=== PATIENT | male | born 1975 | race Caucasian/White ===

== ENCOUNTER 2018-03-12 21:40 | Emergency (ER) | payer BC, SELFPAY ==
[2018-03-12 22:34] LABS: Absolute Lymphocytes (CBC) 2.9 K/uL (0.7-4.9); Absolute Monocytes 0.6 K/uL (0.1-1.3); Absolute Neutrophil 5.9 K/uL (1.8-8.0); Basophils % 0.6 % (0-1.3); Hematocrit 43.6 % (39.6-49.0); Lymphocytes % 29.3 % (15.3-44.8); MCH 27.7 pg (27.0-35.0); MCV 82.7 fL (80-100); MPV 8.8 fL (7.6-11.3); Monocytes % 5.7 % (3.3-12.3); RBC Red Blood Cell Count 5.27 M/uL (4.33-5.43)
[2018-03-12 22:47] LABS: Potassium 3.7 mEq/L (3.6-5.0)
[2018-03-12 22:53] LABS: Albumin 4.1 g/dL (3.2-5.5); Bilirubin Direct 0.1 mg/dL (0-0.2); Bilirubin Total 0.6 mg/dL (0.3-1.2); Magnesium 2.1 mg/dL (1.8-2.5); Protein, Total 7.3 g/dL (6.0-8.3)
[2018-03-12 22:55] LABS: CKMB Creatine Kinase MB 9.5 ng/ml (0.3-4.0); Protime INR 1.13
--- NOTE | 2018-03-13 00:27 | EDPHYS ---
Physician Documentation [facility] Name: Onofre Aponte Age: 43 yrs Sex: Male : 1975 Arrival Date: 03/12/2018 Time: 21:50 Bed 18 Private MD: ED Physician Jamar Ch HPI: 03/13 00:20 This 43 yrs old Male presents to ER via EMS with complaints of Numbness Of tw4 Arm. 00:20 The patient's problem is reported as paresthesias, in left upper extremity, in left tw4 side of face. Onset: The symptoms/episode began/occurred today. Duration: This was a single incident. Context: the episode(s) was witnessed, by no one. The symptoms are alleviated by nothing. The symptoms are aggravated by nothing. Associated signs and symptoms: The patient has no apparent associated signs or symptoms. Severity of symptoms: At their worst the symptoms were moderate in the emergency department the symptoms are unchanged. The patient has not experienced similar symptoms in the past. Historical: - Allergies: 03/12 22:04 NKDA; bs1 - Home Meds: 22:04 simvastatin 20 mg Oral tab 1 tab once daily [Active]; Xarelto 20 mg oral tab [Active]; bs1 metformin 1,000 mg Oral tab 1 tab 2 times per day [Active]; - PMHx: 22:04 PE; High Cholesterol; Diabetes - NIDDM; bs1 - PSHx: 22:04 foot sx; bs1 - Immunization history:: Adult Immunizations up to date. - Social history:: Smoking status: Patient/guardian denies using tobacco. - Ebola Screening: : Patient negative for fever greater than or equal to 101.5 degrees Fahrenheit, and additional compatible Ebola Virus Disease symptoms Patient denies exposure to infectious person. ROS: 03/13 00:20 Constitutional: Negative for fever, chills, and weight loss, Cardiovascular: Negative tw4 for chest pain, palpitations, and edema, Respiratory: Negative for shortness of breath, cough, wheezing, and pleuritic chest pain, Abdomen/GI: Negative for abdominal pain, nausea, vomiting, diarrhea, and constipation. Neuro: Positive for numbness, weakness, Negative for altered mental status, dizziness, gait disturbance, headache, hearing loss, loss of consciousness, speech changes, syncope, near syncope. Exam: 00:20 Radiologist reports: no acute findings tw4 00:20 Constitutional: This is a well developed, well nourished patient who is awake, alert, and in no acute distress. Head/Face: Normocephalic, atraumatic. Chest/axilla: Normal chest wall appearance and motion. Nontender with no deformity. No lesions are appreciated. Cardiovascular: Regular rate and rhythm with a normal S1 and S2. No gallops, murmurs, or rubs. Normal PMI, no JVD. No pulse deficits. Respiratory: Lungs have equal breath sounds bilaterally, clear to auscultation and percussion. No rales, rhonchi or wheezes noted. No increased work of breathing, no retractions or nasal flaring. Abdomen/GI: Soft, non-tender, with normal bowel sounds. No distension or tympany. No guarding or rebound. No evidence of tenderness throughout. Back: No spinal tenderness. No costovertebral tenderness. Full range of motion. MS/ Extremity: Pulses equal, no cyanosis. Neurovascular intact. Full, normal range of motion. Neuro: Awake and alert, GCS 15, oriented to person, place, time, and situation. Cranial nerves II-XII grossly intact. Motor strength 5/5 in all extremities. Sensory grossly intact. Cerebellar exam normal. Normal gait. Vital Signs: 03/12 21:50 BP 144 / 77 LA Sitting (auto/lg); Pulse 85 LA; Resp 19; Pulse Ox 95% on R/A; Weight bs1 156.49 kg; Height 6 ft. 1 in. (185.42 cm); Pain 0/10; 23:00 BP 135 / 78; Pulse 82; Resp 18; Pulse Ox 95% on R/A; mb3 03/13 01:03 BP 135 / 69; Pulse 78; Resp 18; Pulse Ox 96% on R/A; mb3 03/12 21:50 Body Mass Index 45.52 (156.49 kg, 185.42 cm) bs1 MDM: 03/12 22:08 Patient medically screened. tw4 03/13 00:20 Data reviewed: vital signs, nurses notes. Counseling: I had a detailed discussion with tw4 the patient and/or guardian regarding: the historical points, exam findings, and any diagnostic results supporting the discharge/admit diagnosis. 03/12 22:09 Order name: DEONTE 03/12 22:09 Order name: Ckmb 03/12 22:09 Order name: UDS 03/12 22:09 Order name: Troponin (emerg Dept Use Only); Complete Time: 23:22 4 03/12 23:23 Interpretation: Within normal limits: TROPED < 0.03. 03/12 22:09 Order name: Lipase 03/12 22:09 Order name: Magnesium 03/12 22:09 Order name: Hepatic Function 03/12 22:09 Order name: Amylase, Serum; Complete Time: 23:22 4 03/12 23:23 Interpretation: Normal except: CRAIG 25. 03/12 22:09 Order name: Basic Metabolic Panel; Complete Time: 23:22 03/12 23:23 Interpretation: Normal except: GLUC 173; GFR 86. 03/12 22:09 Order name: CBC with Diff; Complete Time: 23:22 [facility] 03/12 22:09 Order name: Protime (+inr); Complete Time: 23:22 03/12 22:09 Order name: Ptt, Activated; Complete Time: 23:22 03/12 22:09 Order name: Urine Microscopic Only 03/12 22:10 Order name: Creatine Phosphokinase; Complete Time: 23:22 EDMS 03/12 22:09 Order name: CT Stroke Brain w/o Contrast 03/12 22:09 Order name: Stroke CXR 1 View 03/12 22:09 Order name: EKG; Complete Time: 22:10 [facility] 03/12 22:09 Order name: Accucheck 03/12 22:09 Order name: Cardiac monitoring; Complete Time: 22:14 03/12 22:09 Order name: EKG - Nurse/Tech; Complete Time: 22:14 03/12 22:09 Order name: IV Saline Lock 03/12 22:09 Order name: Labs collected and sent 03/12 22:09 Order name: NPO 03/12 22:09 Order name: O2 Per Protocol 03/12 22:09 Order name: O2 Sat Monitoring 03/12 22:10 Order name: CKMB Creatine Kinase MB; Complete Time: 23:22 EDMS 03/12 22:10 Order name: Lipase; Complete Time: 23:22 EDME 03/12 23:23 Interpretation: Within normal limits: LIP 31. tw4 03/12 22:10 Order name: Magnesium; Complete Time: 23:22 EDMS 03/12 23:23 Interpretation: Within normal limits: MG 2.1. tw4 03/12 22:10 Order name: Liver (Hepatic) Function; Complete Time: 23:22 EDME 06 23:23 Interpretation: Within normal limits. tw4 03/13 00:34 Order name: Urine Dipstick--Ancillary (enter results) fl 03/12 22:09 Order name: Stroke Swallow Screen tw4 03/12 22:09 Order name: Urine Dipstick-Ancillary (obtain specimen); Complete Time: 00:34 tw4 Administered Medications: No medications were administered Disposition: 03/13/18 00:26 Transfer ordered to [facility]. Diagnosis is Transient cerebral ischemic attack, unspecified. - Reason for transfer: Higher level of care. - Accepting physician is Dr Chan and Dr Acosta. - Condition is Stable. - Problem is new. - Symptoms have improved. Signatures: Dispatcher [employer] EDME Caitlyn Gonzalez RN RN bs1 Jamar Ch MD MD tw4 Hero Odom RN RN mb3 Corrections: (The following items were deleted from the chart) 01:24 00:26 03/13/2018 00:26 Transfer ordered to [facility]. Diagnosis is mb3 Transient cerebral ischemic attack, unspecified. Reason for transfer: Higher level of care. Accepting physician is Dr Chan and Dr Acosta. Condition is Stable. Problem is new. Symptoms have improved. tw4
--- NOTE | 2018-03-13 00:27 | ER ---
Nurse's Notes [facility] Name: Onofre Aponet Age: 43 yrs Sex: Male : 1975 Arrival Date: 03/12/2018 Time: 21:50 Bed 18 Private MD: Diagnosis: Transient cerebral ischemic attack, unspecified Presentation: 03/12 21:50 Presenting complaint: EMS states: "About an hour ago patients daughter called EMS with bs1 c/o numbness in face and some slurred speech, on arrival no deficits noted, blood pressure 130/77, heart rate 88, 97% on room air, patient denies any pain.". Transition of care: patient was not received from another setting of care. Onset of symptoms was March 12, 2018 at 21:07. Risk Assessment: Do you want to hurt yourself or someone else? Patient reports no desire to harm self or others. Initial Sepsis Screen: Does the patient meet any 2 criteria? No. Patient's initial sepsis screen is negative. Does the patient have a suspected source of infection? No. Patient's initial sepsis screen is negative. Care prior to arrival: Glucose check: 111. 21:50 Method Of Arrival: EMS: [facility] bs1 21:50 Acuity: BILLY 3 bs1 Historical: - Allergies: 22:04 NKDA; bs1 - Home Meds: 22:04 simvastatin 20 mg Oral tab 1 tab once daily [Active]; Xarelto 20 mg oral tab [Active]; bs1 metformin 1,000 mg Oral tab 1 tab 2 times per day [Active]; - PMHx: 22:04 PE; High Cholesterol; Diabetes - NIDDM; bs1 - PSHx: 22:04 foot sx; bs1 - Immunization history:: Adult Immunizations up to date. - Social history:: Smoking status: Patient/guardian denies using tobacco. - Ebola Screening: : Patient negative for fever greater than or equal to 101.5 degrees Fahrenheit, and additional compatible Ebola Virus Disease symptoms Patient denies exposure to infectious person. Screenin:04 Abuse screen: Denies threats or abuse. Denies injuries from another. Nutritional bs1 screening: No deficits noted. Tuberculosis screening: No symptoms or risk factors identified. Fall Risk None identified. Assessment: 03/13 01:03 General: Appears in no apparent distress. comfortable, obese, Behavior is calm, mb3 cooperative, appropriate for age. Pain: Denies pain. Neuro: No deficits noted. Level of Consciousness is awake, alert, obeys commands, Oriented to person, place, time, situation, Data Integration Developer are equal bilaterally Moves all extremities. Full function Gait is steady, Speech is normal, Facial symmetry appears normal, Pupils are PERRLA, Intact. Cardiovascular: No deficits noted. Heart tones present Capillary refill < 3 seconds. Respiratory: Airway is patent Respiratory effort is even, unlabored, Respiratory pattern is regular, symmetrical, Breath sounds are clear bilaterally. GI: Abdomen is round obese, Bowel sounds present X 4 quads. : No signs and/or symptoms were reported regarding the genitourinary system. Derm: No signs and/or symptoms reported regarding the dermatologic system. Musculoskeletal: No signs and/or symptoms reported regarding the musculoskeletal system. Vital Signs: 03/12 21:50 BP 144 / 77 LA Sitting (auto/lg); Pulse 85 LA; Resp 19; Pulse Ox 95% on R/A; Weight bs1 156.49 kg; Height 6 ft. 1 in. (185.42 cm); Pain 0/10; 23:00 BP 135 / 78; Pulse 82; Resp 18; Pulse Ox 95% on R/A; mb3 03/13 01:03 BP 135 / 69; Pulse 78; Resp 18; Pulse Ox 96% on R/A; mb3 03/12 21:50 Body Mass Index 45.52 (156.49 kg, 185.42 cm) bs1 ED Course: 03/12 21:50 Patient arrived in ED. mb3 21:51 Hero Odom, RN is Primary Nurse. mb3 22:02 Triage completed. bs1 22:05 Patient has correct armband on for positive identification. Bed in low position. Call bs1 light in reach. Side rails up X 1. Pulse ox on. NIBP on. 22:08 Jamar Ch MD is Attending Physician. tw4 22:29 Missed attempt(s): 20 gauge in right antecubital area. blood work send. Bleeding oe controlled, band aid applied, catheter tip intact. 22:36 Radiology exam delayed due to dr giron pt. cw1 22:38 X-ray completed. Portable x-ray completed in exam room. Patient tolerated procedure mh1 well. 22:43 Stroke CXR 1 View In Process Unspecified. EDMS 22:47 CT completed. Patient moved to CT via stretcher. Patient moved back from CT. cw1 22:49 CT Stroke Brain w/o Contrast In Process Unspecified. EDMS 23:01 Inserted saline lock: 20 gauge in right hand, using aseptic technique. mb3 06/03 01:05 Arm band placed on left wrist. mb3 01:21 No provider procedures requiring assistance completed. Patient transferred, IV remains mb3 in place. Administered Medications: No medications were administered Outcome: 00:26 ER care complete, transfer ordered by . tw4 01:22 Transferred by ground EMS to [facility], Transfer form completed. mb3 01:22 Transferred Note: Report called to Tommy Guerrero RN 01:22 Condition: stable 01:22 Instructed on the need for transfer. 01:24 Patient left the ED. mb3 Signatures: Dispatcher [employer] EDMS Denisha Ceron mh1 Evy Ken cw1 Willian Su Brittany, RN RN bs1 Jamar Ch MD MD tw4 Hero Odom, RN RN mb3 Corrections: (The following items were deleted from the chart) 01:03 06/02 23:00 BP 135 / 69; Pulse 78bpm; Resp 18bpm; Pulse Ox 96% RA; mb3 mb3
[2018-03-13 00:40] LABS: Urine Blood TRACE (NEG); Urine Glucose NEGATIVE (NEG); Urine Protein NEGATIVE (NEG)
[2018-03-13 00:47] LABS: Barbiturates NEGATIVE; Benzodiazepines NEGATIVE; Cocaine NEGATIVE; METHAMPHETAM NEGATIVE (NEGATIVE); Opiates NEGATIVE; Phencyclidine NEGATIVE; THC Cannibis NEGATIVE
[2018-03-13 00:51] LABS: Urine Amorphous Sediment TRACE /HPF (NONE SEEN); Urine Bacteria <20 /HPF (NONE SEEN); Urine Culture Reflex Order NOT NEEDED
[2018-03-13 01:30] VITALS: BP 135/69; O2SAT 96
--- NOTE | 2018-03-13 09:59 | RAD REPORT ---
EXAM DESCRIPTION: Bhavani Single View03/12/2018 10:43 pm CLINICAL HISTORY: Chest pain/code stroke COMPARISON: 2013 FINDINGS: The lungs appear clear of acute infiltrate. The heart is normal size IMPRESSION: No acute abnormalities displayed
--- NOTE | 2018-03-13 10:41 | EKG ---
Test Date: 2018-03-12 Test Time: 22:06:24 Senior Business Architect: CANDIDA MEASUREMENT RESULTS: Intervals: Rate: 81 [place]: 184 QRSD: 100 QT: 372 QTc: 432 [place]: P: 70 [place]: 184 QRS: 58 T: 58 INTERPRETIVE STATEMENTS: Normal sinus rhythm Cannot rule out Anterior infarct, age undetermined Abnormal ECG Compared to ECG 06/25/2014 14:22:41 Possible myocardial infarct finding now present Electronically Signed On 03-13-18 10:40:33 CDT by Ghassan Walls
--- NOTE | 2018-03-13 11:27 | RAD REPORT ---
EXAM DESCRIPTION: CT - Ct Stroke Brain Wo Cont - 03/12/2018 10:49 pm CLINICAL HISTORY: Numbness and speech disturbance for 1 hour COMPARISON: None. TECHNIQUE: Computed axial tomography of the head was obtained. IV contrast was not requested. All CT scans are performed using dose optimization technique as appropriate and may include automated exposure control or mA/KV adjustment according to patient size. FINDINGS: An intracranial bleed is not seen . The ventricles are normal in caliber. No extra-axial fluid collection is noted. The right mastoids are opacified IMPRESSION: No acute intracranial abnormality is seen. If patient's symptoms persist MRI of the bra in would be recommended. Opacification the right mastoids may indicate mastoiditis A signed preliminary report by [facility] was given 11:21 p.m. March 12, 2018
== END 2018-03-13 01:24 | disposition short-term general hospital (02) ==
LOC: ER 21:40
DX: G45.9 Transient cerebral ischemic attack, unspecified (principal); E11.9 Type 2 diabetes mellitus without complications; E78.00 Pure hypercholesterolemia, unspecified; Z79.02 Long term (current) use of antithrombotics/antiplatelets
CPT/HCPCS: 36415; 70450; 71045; 80048; 80076; 80307; 81003; 81015; 82150; 82550; 82553; 83690; 83735; 84484; 85025; 85610; 85730; 93005; 99285

== ENCOUNTER 2024-03-07 17:23 | Emergency (ER) | payer OTHER, SELFPAY ==
[2024-03-07 19:25] LABS: Absolute Basophils 0.1 K/uL (0-0.5); Absolute Eosinophils 0.2 K/uL (0-0.5); Absolute Lymphocytes (CBC) 2.9 K/uL (0.7-4.9); Absolute Monocytes 0.5 K/uL (0.1-1.3); Absolute Neutrophil 6.6 K/uL (1.8-8.0); Basophils % 0.8 % (0-1.3); Eosinophils % 2.3 % (0-4.4); Hematocrit 46.9 % (39.6-49.0); Hemoglobin 15.7 g/dL (13.6-17.9); Lymphocytes % 28.6 % (15.3-44.8); MCH 28.1 pg (27.0-35.0); MCHC 33.5 g/dL (32.0-36.0); MCV 83.9 fL (80-100); MPV 8.2 fL (7.6-11.3); Monocytes % 4.5 % (3.3-12.3); Neutrophils % 63.8 % (41.7-73.7); Platelets 263 thou/uL (152-406); RBC Red Blood Cell Count 5.59 M/uL (4.33-5.43); Red Cell Distribution Width 13.9 % (12.1-15.2)
[2024-03-07 19:37] LABS: Specific Gravity 1.008 (1.005-1.030); Urine Bilirubin NEGATIVE (Negative); Urine Blood Negative (Negative); Urine Clarity Clear (Clear); Urine Color Colorless (Yellow); Urine Glucose NEGATIVE (Negative); Urine Ketones NEGATIVE (Negative); Urine Microscopic Reflex YN NO UMIC; Urine Nitrite NEGATIVE (Negative); Urine Protein NEGATIVE (Negative); Urine Urobilinogen Normal (Normal); Urine pH 5.5 (5.0-7.0)
[2024-03-07 19:38] LABS: Anion Gap 9.7 mEq/L (5.0-15.0); Potassium 3.7 mEq/L (3.5-5.1)
--- NOTE | 2024-03-07 21:03 | RAD REPORT ---
EXAM DESCRIPTION: CT - Abdomen Pelvis W Contrast - 03/07/2024 8:10 pm CLINICAL HISTORY: Abdominal pain/back pain COMPARISON: none. TECHNIQUE: Computed axial tomography of the abdomen pelvis was obtained. 100 cc Isovue-300 was admin istered intravenously. Oral contrast was not requested which limits evaluation of bowel and appendix All CT scans are performed using dose optimization technique as appropriate and may include automated exposure control or mA/KV adjustment according to patient size. FINDINGS: The liver, spleen, pancreas, and adrenals appear unremarkable. Small bilateral renal calculi. No hydronephrosis. 3 centimeter isodense to hypodense area medial mid pole left kidney extending to the periphery. Sub c entimeter left renal cysts 2.2 centimeter gallstone. Gallbladder wall is thickened. There is no evidence of diverticulitis. Small umbilical hernia Spondylosis L2-3 results in mild central spinal stenosis IMPRESSION: 3 centimeter isodense to hypodense area medial mid pole left kidney extending to the per iphery. It is uncertain whether this represents a mass or area of inflammation. Further evaluation wi MRI may helpful Cholelithiasis without evidence of cholecystitis Small bilateral nonobstructing renal calculi
--- NOTE | 2024-03-07 21:40 | EDPHYS ---
Physician Documentation [facility] Name: Onofre Aponte Age: 49 yrs Sex: Male : 1975 Arrival Date: 03/07/2024 Time: 17:23 Bed 19 Private MD: ED Physician Jake Klein Historical: - Allergies: 03/07 17:36 NKDA; cm10 - Home Meds: 17:41 Xarelto 20 mg Oral tab [Active]; metformin 500 mg oral Tablet, Extended Release 24 hr cm10 [Active]; lovastatin 40 mg oral tablet [Active]; lisinopril 10 mg Oral tablet [Active]; Mounjaro 10 mg/0.5 mL subcutaneous Pen Injector every week [Active]; - PMHx: 17:36 Diabetes - NIDDM; High Cholesterol; PE; cm10 17:41 TIA; cm10 - Immunization history:: Adult Immunizations up to date. - Infectious Disease History:: Denies. - Social history:: Smoking status: Reported history of juuling and/or vaping. Vital Signs: 17:38 BP 141 / 96; Pulse 99; Resp 18 S; Temp 98.2(TE); Pulse Ox 98% on R/A; Weight 145.15 kg; cm10 Height 6 ft. 1 in. ; Pain 4/10; 19:20 BP 132 / 78; Pulse 91; Resp 20 S; Pulse Ox 95% on R/A; jw7 21:15 BP 119 / 74; Pulse 84; Resp 17 S; Pulse Ox 98% on R/A; jw7 21:56 BP 124 / 79; Pulse 87; Resp 15 S; Pulse Ox 96% on R/A; jw7 17:38 Body Mass Index 42.22 (145.15 kg, 185.42 cm) cm10 17:38 Pain Scale: Adult cm10 MDM: 17:29 Patient medically screened. rn 20:01 Data reviewed: vital signs. ED course: Patient signed out Disposition,. Patient arrives ec2 today for likely muscular low back pain. Plan is to follow-up CT imaging. Differential diagnosis include processes such as ureteral stone, intra-abdominal infection, MSK pain.. 20:06 ED course: Labs show reassuring CBC, metabolic profile is reassuring with appropriate ec2 renal function, urine is noninfectious appearing . 21:40 ED course: CT scan of the abdomen pelvis shows 3 cm lesion of the left kidney, patient ec2 to follow-up outpatient expectantly for further evaluation of this. Cholelithiasis without cholecystitis noted as well. Will discharge home, prescribed patient Eliot, suspect musculoskeletal pain . 03/07 17:42 Order name: CBC with Diff; Complete Time: 19:44 rn 03/07 17:42 Order name: Basic Metabolic Panel; Complete Time: 19:44 rn 03/07 17:42 Order name: Urinalysis w/ reflexes; Complete Time: 19:44 rn 03/07 17:42 Order name: CT Abd/Pelvis - IV Contrast Only; Complete Time: 21:39 rn 03/07 17:42 Order name: IV Start; Complete Time: 19:22 rn Administered Medications: No medications were administered Disposition Summary: 03/07/24 21:40 Discharge Ordered Notes: Location: Home ec2 Condition: Stable ec2 Diagnosis - Low back pain ec2 Followup: ec2 - With: Private Physician - When: - Reason: Re-evaluation by your physician Discharge Instructions: - Discharge Summary Sheet ec2 - Acute Back Pain, Adult ec2 Forms: - Medication Reconciliation Form ec2 - Antibiotic Education ec2 - Prescription Opioid Use ec2 - Patient Portal Instructions ec2 - Leadership Thank You Letter ec2 Prescriptions: - methocarbamol 500 mg Oral tablet - take 2 tablets ORAL route 4 times per day; 30 tablet; Refills: 0, Product ec2 Selection Permitted Signatures: Dispatcher [employer] EDThor Hare MD MD rn Martinez, Clarissa, RN RN cm10 Jake Klein MD MD ec2 Corrections: (The following items were deleted from the chart) 17:42 17:42 Abdomen Pelvis W Con+CT.RAD.BRZ ordered. EDMS EDMS 17:43 17:43 CBC+H.LAB.BRZ ordered. EDMS EDMS 17:43 17:43 BASIC METABOLIC PANEL+C.LAB.BRZ ordered. EDMS EDMS 17:43 17:43 Urinalysis+U.LAB.BRZ ordered. EDMS EDMS
--- NOTE | 2024-03-07 21:40 | ER ---
Nurse's Notes [facility] Name: Onofre Aponte Age: 49 yrs Sex: Male : 1975 Arrival Date: 03/07/2024 Time: 17:23 Bed 19 Private MD: Diagnosis: Low back pain Presentation: 03/07 17:36 Chief complaint: Patient states: Left-sided lower back pain onset wednesday. Coronavirus cm10 screen: Client denies travel out of the [place] in the last 14 days. At this time, the client does not indicate any symptoms associated with coronavirus-19. Ebola Screen: Patient denies travel to an Ebola-affected area in the 21 days before illness onset. No symptoms or risks identified at this time. Initial Sepsis Screen: Does the patient meet any 2 criteria? HR > 90 bpm. No. Patient's initial sepsis screen is negative. Does the patient have a suspected source of infection? No. Patient's initial sepsis screen is negative. Risk Assessment: Do you want to hurt yourself or someone else? Patient reports no desire to harm self or others. Onset of symptoms was March 07, 2024. 17:36 Method Of Arrival: Ambulatory cm10 17:36 Acuity: BILLY 3 cm10 Triage Assessment: 17:44 General: Appears in no apparent distress. uncomfortable, Behavior is calm, cooperative. cm10 Pain: Complains of pain in left low back. Neuro: No deficits noted. Level of Consciousness is awake, alert, obeys commands, Oriented to person, place, time, situation, Appropriate for age. Respiratory: No deficits noted. Airway is patent Respiratory effort is even, unlabored, Respiratory pattern is regular, symmetrical. Historical: - Allergies: 17:36 NKDA; cm10 - Home Meds: 17:41 Xarelto 20 mg Oral tab [Active]; metformin 500 mg oral Tablet, Extended Release 24 hr cm10 [Active]; lovastatin 40 mg oral tablet [Active]; lisinopril 10 mg Oral tablet [Active]; Mounjaro 10 mg/0.5 mL subcutaneous Pen Injector every week [Active]; - PMHx: 17:36 Diabetes - NIDDM; High Cholesterol; PE; cm10 17:41 TIA; cm10 - Immunization history:: Adult Immunizations up to date. - Infectious Disease History:: Denies. - Social history:: Smoking status: Reported history of juuling and/or vaping. Screenin:42 [facility] ED Fall Risk Assessment (Adult) History of falling in the last 3 months, ph including since admission No falls in past 3 months (0 pts) Confusion or Disorientation No (0 pts) Intoxicated or Sedated No (0 pts) Impaired Gait No (0 pts) Mobility Assist Device Used No (0 pt) Altered Elimination No (0 pt) Score/Fall Risk Level 0 - 2 = Low Risk Oriented to surroundings, Maintained a safe environment, Hourly rounding (assess needs \T\ fall precautionary measures) done. Abuse screen: Denies threats or abuse. Denies injuries from another. Nutritional screening: No deficits noted. Tuberculosis screening: No symptoms or risk factors identified. Assessment: 19:05 General: Appears in no apparent distress. uncomfortable, Behavior is calm, cooperative, jw7 appropriate for age. Pain: Complains of pain in left low back Pain does not radiate. Pain currently is 5 out of 10 on a pain scale. Quality of pain is described as sharp, Pain began gradually, Is intermittent. Neuro: Level of Consciousness is awake, alert, obeys commands, Oriented to person, place, time, situation, Appropriate for age. Cardiovascular: Heart tones S1 S2 present Capillary refill < 3 seconds Clubbing of nail beds is absent JVD is absent Patient's skin is warm and dry. Respiratory: Airway is patent Trachea midline Respiratory effort is even, unlabored, Respiratory pattern is regular, symmetrical, Breath sounds are clear bilaterally. GI: Abdomen is round non-distended, Bowel sounds present X 4 quads. Abd is soft and non tender X 4 quads. : No deficits noted. No signs and/or symptoms were reported regarding the genitourinary system. EENT: No deficits noted. No signs and/or symptoms were reported regarding the EENT system. Derm: Skin is intact, is healthy with good turgor, Skin is dry, Skin is normal, Skin temperature is cool. Musculoskeletal: Circulation, motion, and sensation intact. Range of motion: intact in all extremities. 20:00 Reassessment: Patient appears in no apparent distress at this time. No changes from jw7 previously documented assessment. Patient and/or family updated on plan of care and expected duration. Pain level reassessed. Patient is alert, oriented x 3, equal unlabored respirations, skin warm/dry/pink. 21:00 Reassessment: Patient appears in no apparent distress at this time. No changes from 7 previously documented assessment. Patient and/or family updated on plan of care and expected duration. Pain level reassessed. Patient is alert, oriented x 3, equal unlabored respirations, skin warm/dry/pink. 21:56 Reassessment: Patient appears in no apparent distress at this time. No changes from jw7 previously documented assessment. Patient and/or family updated on plan of care and expected duration. Pain level reassessed. Patient is alert, oriented x 3, equal unlabored respirations, skin warm/dry/pink. Vital Signs: 17:38 BP 141 / 96; Pulse 99; Resp 18 S; Temp 98.2(TE); Pulse Ox 98% on R/A; Weight 145.15 kg; cm10 Height 6 ft. 1 in. ; Pain 4/10; 19:20 BP 132 / 78; Pulse 91; Resp 20 S; Pulse Ox 95% on R/A; jw7 21:15 BP 119 / 74; Pulse 84; Resp 17 S; Pulse Ox 98% on R/A; jw7 21:56 BP 124 / 79; Pulse 87; Resp 15 S; Pulse Ox 96% on R/A; jw7 17:38 Body Mass Index 42.22 (145.15 kg, 185.42 cm) cm10 17:38 Pain Scale: Adult cm10 ED Course: 17:28 Patient arrived in ED. mg5 17:29 Thor Kimbrough MD is Attending Physician. rn 17:36 Triage completed. cm10 17:44 Arm band placed on Patient placed in waiting room. cm10 18:37 Patient placed in an exam room, on a stretcher. ll1 18:41 Haily Atkins, RN is Primary Nurse. ph 18:42 Patient has correct armband on for positive identification. Bed in low position. Call ph light in reach. 19:00 Provided Education on: Use of Call Light. jw 19:21 Initial lab(s) drawn, by hi, sent to lab. Inserted saline lock: 20 gauge in left jw7 antecubital area, using aseptic technique. Blood collected. 20:00 Attending Physician role handed off by Thor Kimbrough MD ec2 20:00 Jake Klein MD is Attending Physician. ec2 20:11 CT Abd/Pelvis - IV Contrast Only In Process Unspecified. EDMS 21:57 No provider procedures requiring assistance completed. IV discontinued, intact, jw7 bleeding controlled, No redness/swelling at site. Pressure dressing applied. Administered Medications: No medications were administered Medication: 18:42 VIS not applicable for this client. ph Outcome: 21:40 Discharge ordered by MD. ec2 21:57 Discharged to home ambulatory, jw7 21:57 Condition: stable 21:57 Discharge instructions given to patient, Instructed on discharge instructions, follow up and referral plans. medication usage, Demonstrated understanding of instructions, follow-up care, medications, Prescriptions given X 1, 21:57 Patient left the ED. jw7 Signatures: Dispatcher [employer] EDKY Thor Kimbrough MD MD rn Haily Atkins RN RN Guero Palafox RN RN ll1 Cami Coles RN RN jw7 Stephanie Bettencourt RN RN cm10 Angelita Renae mg5 Jake Klein MD MD ec2 Corrections: (The following items were deleted from the chart) 17:41 17:36 Acuity: BILLY 4 cm10 cm10
[2024-03-07 22:43] VITALS: BP 124/79; TEMP 98.2; O2SAT 96
== END 2024-03-07 21:57 | disposition home or self-care (01) ==
LOC: ER 17:23
DX: M54.50 Low back pain, unspecified (principal); Z86.711 Personal history of pulmonary embolism; Z79.01 Long term (current) use of anticoagulants
CPT/HCPCS: 85025; 80048; 36415; 81003; 74177; 99284; Q9967

== ENCOUNTER 2024-05-10 10:25 | Emergency (ER) | payer OTHER, SELFPAY ==
--- NOTE | 2024-05-10 11:48 | RAD REPORT ---
EXAM DESCRIPTION: CT - Head Brain Wo Cont - 05/10/2024 11:00 am CLINICAL HISTORY: SYNCOPE COMPARISON: Ct Stroke Brain Wo Cont dated 03/12/2018 TECHNIQUE: Noncontrast head CT images were obtained without IV contrast. Multiplanar reformats were generated and reviewed. All CT scans are performed using dose optimization technique as appropriate and may include automated exposure control or mA/KV adjustment according to patient size. FINDINGS: No intracranial hemorrhage, mass, or edema. Midline structures are unremarkable. Normal ventricular caliber for age. Alvarez-white matter differentiation is preserved, without evidence of acute infarct. No abnormal extra- axial fluid collections. Opacification of the right mastoid air cells, unchanged. Visualized portions of the paranasal sinuses are clear. No acute bony findings. IMPRESSION: No evidence of an acute intracranial process.
--- NOTE | 2024-05-10 11:54 | RAD REPORT ---
EXAM DESCRIPTION: Yungt Single View05/10/2024 11:08 am CLINICAL HISTORY: COUGH COMPARISON: Chest Single View dated 03/12/2018; CHEST SINGLE VIEW dated 06/25/2014; CHEST SINGLE VIEW d ated 04/10/2014; CHEST SINGLE VIEW dated 02/03/2014 TECHNIQUE: Portable AP view of the chest. FINDINGS: The lungs are clear. No pneumothorax or effusion. The cardiomediastinal contours are unre markable. IMPRESSION: No acute cardiopulmonary process.
[2024-05-10] MEDS ORDERED: NA CHLORIDE 0.9% 1,000 ML ONE (12:15)
[2024-05-10 12:18] LABS: Absolute Eosinophils 0.3 K/uL (0-0.5); Absolute Lymphocytes (CBC) 2.8 K/uL (0.7-4.9); Absolute Monocytes 0.4 K/uL (0.1-1.3); Basophils % 0.7 % (0-1.3); Eosinophils % 3.5 % (0-4.4); Hematocrit 45.5 % (39.6-49.0); Hemoglobin 14.9 g/dL (13.6-17.9); MCHC 32.8 g/dL (32.0-36.0); MCV 85.5 fL (80-100); MPV 8.6 fL (7.6-11.3); Monocytes % 5.5 % (3.3-12.3); Neutrophils % 53.3 % (41.7-73.7); Platelets 229 thou/uL (152-406); RBC Red Blood Cell Count 5.33 M/uL (4.33-5.43); Red Cell Distribution Width 13.4 % (12.1-15.2)
[2024-05-10 12:27] LABS: PT Prothrombin Time 11.2 SECONDS (9.4-12.5)
[2024-05-10 12:35] LABS: Albumin 4.3 g/dL (3.4-5.0); Albumin/Globulin Ratio 1.4 (1.1-1.8); Anion Gap 8.9 mEq/L (5.0-15.0); Bilirubin Direct 0.2 mg/dL (0-0.2); Bilirubin Indirect, Calculated 0.3 mg/dL (0.2-0.8); Bilirubin Total 0.5 mg/dL (0.2-1.0); Potassium 3.9 mEq/L (3.5-5.1); Protein, Total 7.3 g/dL (6.4-8.2); Troponin High Sensitivity 4.9 pg/mL (<58.9)
[2024-05-10 13:29] LABS: Specific Gravity 1.021 (1.005-1.030); Sqamous Epithelial None Seen /HPF (None Seen); Urine Bacteria <20 /HPF (<20); Urine Bilirubin NEGATIVE (Negative); Urine Blood Negative (Negative); Urine Clarity Turbid (Clear); Urine Color Light-Yellow (Yellow); Urine Culture Reflex Order NOT NEEDED; Urine Glucose 4+ (Over) (Negative); Urine Ketones NEGATIVE (Negative); Urine Microscopic Reflex YN ORDER UMIC; Urine Mucus Slight /HPF (None Seen); Urine Nitrite NEGATIVE (Negative); Urine Protein NEGATIVE (Negative); Urine RBC <5 /HPF (None Seen); Urine Urobilinogen Normal (Normal); Urine WBC <5 /HPF (<5); Urine pH 6.5 (5.0-7.0)
--- NOTE | 2024-05-10 14:46 | EDPHYS ---
Physician Documentation [facility] Name: Onofre Aponte Age: 49 yrs Sex: Male : 1975 Arrival Date: 05/10/2024 Time: 10:25 Bed 19 Private MD: ED Physician Edward Luong HPI: 05/10 14:42 This 49 yrs old Male presents to ER via Ambulatory with complaints of Syncope.maxim 14:42 The patient has experienced near-syncope, almost passed out, felt dizzy, felt faint, maxim felt generally weak. Onset: The symptoms/episode began/occurred just prior to arrival. Duration: This was a single episode, that lasted 20 second(s). Context: the episode(s) was witnessed, by family, occurred at home. Associated injury: The patient did not suffer any apparent associated injury. Associated signs and symptoms: Pertinent positives: weakness. Current symptoms: Currently, the patient is not experiencing any symptoms. The patient has not experienced similar symptoms in the past. Historical: - Allergies: 10:47 NKDA; ko1 - Home Meds: 10:47 lisinopril 10 mg Oral tablet [Active]; lovastatin 40 mg Oral tablet [Active]; metformin ko1 500 mg Oral Tablet [Active]; Mounjaro 10 mg/0.5 mL subcutaneous Pen Injector every week [Active]; simvastatin 20 mg Oral tab 1 tab once daily [Active]; Xarelto 20 mg Oral tab [Active]; - PMHx: 10:47 Diabetes - NIDDM; High Cholesterol; PE; TIA; ko1 - Immunization history:: Adult Immunizations up to date. - Infectious Disease History:: Denies. - Social history:: Smoking status: Patient denies any tobacco usage or history of. - Family history:: not pertinent. ROS: 14:42 Constitutional: Negative for fever, chills, and weight loss, Eyes: Negative for injury, maxim pain, redness, and discharge, ENT: Negative for injury, pain, and discharge, Neck: Negative for injury, pain, and swelling, Cardiovascular: Negative for chest pain, palpitations, and edema, Respiratory: Negative for shortness of breath, cough, wheezing, and pleuritic chest pain, Abdomen/GI: Negative for abdominal pain, nausea, vomiting, diarrhea, and constipation, Back: Negative for injury and pain, : Negative for injury, bleeding, discharge, and swelling, MS/Extremity: Negative for injury and deformity, Skin: Negative for injury, rash, and discoloration, Psych: Negative for depression, anxiety, suicide ideation, homicidal ideation, and hallucinations, Allergy/Immunology: Negative for hives, rash, and allergies, Endocrine: Negative for neck swelling, polydipsia, polyuria, polyphagia, and marked weight changes, Hematologic/Lymphatic: Negative for swollen nodes, abnormal bleeding, and unusual bruising, 14:42 Neuro: Positive for syncope, near syncope, weakness, Exam: 14:42 Constitutional: This is a well developed, well nourished patient who is awake, alert, maxim and in no acute distress. Head/Face: Normocephalic, atraumatic. Eyes: Pupils equal round and reactive to light, extra-ocular motions intact. Lids and lashes normal. Conjunctiva and sclera are non-icteric and not injected. Cornea within normal limits. Periorbital areas with no swelling, redness, or edema. ENT: Nares patent. No nasal discharge, no septal abnormalities noted. Tympanic membranes are normal and external auditory canals are clear. Oropharynx with no redness, swelling, or masses, exudates, or evidence of obstruction, uvula midline. Mucous membranes moist. Neck: Trachea midline, no thyromegaly or masses palpated, and no cervical lymphadenopathy. Supple, full range of motion without nuchal rigidity, or vertebral point tenderness. No Meningismus. Chest/axilla: Normal chest wall appearance and motion. Nontender with no deformity. No lesions are appreciated. Cardiovascular: Regular rate and rhythm with a normal S1 and S2. No gallops, murmurs, or rubs. Normal PMI, no JVD. No pulse deficits. Respiratory: Lungs have equal breath sounds bilaterally, clear to auscultation and percussion. No rales, rhonchi or wheezes noted. No increased work of breathing, no retractions or nasal flaring. Abdomen/GI: Soft, non-tender, with normal bowel sounds. No distension or tympany. No guarding or rebound. No evidence of tenderness throughout. Back: No spinal tenderness. No costovertebral tenderness. Full range of motion. Male : Normal genitalia with no discharge or lesions. Skin: Warm, dry with normal turgor. Normal color with no rashes, no lesions, and no evidence of cellulitis. MS/ Extremity: Pulses equal, no cyanosis. Neurovascular intact. Full, normal range of motion. Neuro: Awake and alert, GCS 15, oriented to person, place, time, and situation. Cranial nerves II-XII grossly intact. Motor strength 5/5 in all extremities. Sensory grossly intact. Cerebellar exam normal. Normal gait. Psych: Awake, alert, with orientation to person, place and time. Behavior, mood, and affect are within normal limits. 14:42 Musculoskeletal/extremity: DVT Exam: No signs of deep vein thrombosis. no pain, no swelling, no tenderness, negative Homans' sign noted on exam, no appreciated bluish discoloration, no erythema, no increased warmth, 14:47 ECG was reviewed by the Attending Physician. [facility] Vital Signs: 10:42 BP 184 / 79; Pulse 83; Resp 18; Temp 98; Pulse Ox 98% on R/A; ko1 12:22 BP 123 / 67; Pulse 84; Resp 19 S; Pulse Ox 96% on R/A; kc6 13:18 BP 121 / 74; Pulse 81; Resp 18 S; Pulse Ox 98% on R/A; kc6 15:16 BP 121 / 67; Pulse 80; Resp 17 S; Pulse Ox 100% on R/A; kc6 MDM: 10:[address] [facility] 14:44 Differential Diagnosis: aortic aneurysm, cardiac arrhythmia, emotional response, GI maxim bleed, seizure, sepsis, transient ischemic attack, vasovagal episode. Data reviewed: vital signs, nurses notes, lab test result(s), EKG, radiologic studies, CT scan, plain films. Consideration of Admission/Observation Escalation of care including admission/observation considered. I considered the following discharge prescriptions or medication management in the emergency department Medications were administered in the Emergency Department. See MAR. Independent interpretation of the following test(s) in the Emergency Department EKG: See my EKG interpretation above. Test considered but Not performed: CT: no ct chest ro pe. Care significantly affected by the following chronic conditions: Diabetes, Hypertension, Obesity. Counseling: I had a detailed discussion with the patient and/or guardian regarding the historical points, exam findings, and any diagnostic results supporting the discharge/admit diagnosis, lab results, radiology results, the need for outpatient follow up. 05/10 10:42 Order name: Basic Metabolic Panel; Complete Time: 14:41 [facility] 05/10 10:42 Order name: CBC with Diff; Complete Time: 14:41 [facility] 05/10 10:42 Order name: LFT's; Complete Time: 14:41 [facility] 05/10 10:42 Order name: Magnesium; Complete Time: 14:41 [facility] 05/10 10:42 Order name: NT PRO-BNP; Complete Time: 14:41 [facility] 05/10 10:42 Order name: PT-INR; Complete Time: 14:41 [facility] 05/10 10:42 Order name: Troponin HS; Complete Time: 14:41 [facility] 05/10 10:42 Order name: Urinalysis w/ reflexes; Complete Time: 14:41 [facility] 05/10 10:42 Order name: XRAY Chest (1 view); Complete Time: 14:41 [facility] 05/10 10:42 Order name: CT Head Brain wo Cont; Complete Time: 14:41 [facility] 05/10 10:42 Order name: Cardiac monitoring; Complete Time: 12:13 [facility] 05/10 10:42 Order name: EKG - Nurse/Tech; Complete Time: 12:13 [facility] 05/10 10:42 Order name: IV Saline Lock; Complete Time: 12:10 [facility] 05/10 10:42 Order name: Labs collected and sent; Complete Time: 12:10 [facility] 05/10 10:42 Order name: O2 Per Protocol; Complete Time: 12:13 [facility] 05/10 10:42 Order name: O2 Sat Monitoring; Complete Time: 12:13 [facility] EC:47 Rate is 86 beats/min. Rhythm is regular. QRS [place] is Normal. [place] interval is normal. QRS maxim interval is normal. QT interval is normal. No Q waves. T waves are Normal. No ST changes noted. Clinical impression: Normal ECG and No evidence of ischemia. Interpreted by me. Reviewed by me. Administered Medications: 12:20 Drug: NS 0.9% IV 1000 ml IV at 1 bolus Per protocol; 1000 mL bolus Route: IV; Rate: 1 kc6 bolus; Site: left antecubital; 15:11 Follow up: Response: No adverse reaction; IV Status: Completed infusion; IV Intake: kc6 1000ml 15:13 Drug: Xarelto PO 20 mg PO once Route: PO; kc6 Disposition Summary: 05/10/24 14:45 Discharge Ordered Notes: Location: Home maxim Problem: new maxim Symptoms: have improved maxim Condition: Stable maxim Diagnosis - Syncope Near maxim - Weakness maxim - Hypokalemia maxim - intermediate manager (current) use of anticoagulants maxim Followup: maxim - With: Private Physician - When: 2 - 3 days - Reason: Recheck today's complaints, Continuance of care, Re-evaluation by your physician Discharge Instructions: - Discharge Summary Sheet maxim - Near-Syncope maxim - Obesity, Adult maxim - Syncope maxim - Weakness maxim - Near-Syncope, Ygwi-[id number] maxim - Syncope, Swvh-nn-Xois maxim - Weakness, Wfoy-wv-Izxj maxim - Obesity, Adult, Hnry-bp-Rnky maxim - Deconditioning maxim Forms: - Medication Reconciliation Form maxim - Antibiotic Education maxim - Prescription Opioid Use maxim - Patient Portal Instructions maxim - Leadership Thank You Letter maxim Signatures: Dispatcher [employer] EDEdward Appiah MD MD cha Campbell, Kaitlyn RN RN kc6 Rebecca Ramirez RN RN ko1 Corrections: (The following items were deleted from the chart) 10:43 10:43 Head Brain Wo Cont+CT.RAD.BRZ ordered. EDMS EDMS
--- NOTE | 2024-05-10 14:46 | ER ---
Nurse's Notes [facility] Name: Onofre Aponte Age: 49 yrs Sex: Male : 1975 Arrival Date: 05/10/2024 Time: 10:25 Bed 19 Private MD: Diagnosis: Syncope Near;Weakness;Hypokalemia;terminal supervisor (current) use of anticoagulants Presentation: 05/10 10:42 Chief complaint: Patient's son or daughter states: about 0930 he was talking to his ko1 and the next thing he knew he was on the floor, it was a controlled fall, did not hit head. This has happened before, just has "deer in the headlight look". Lasts for about a minute. Coronavirus screen: At this time, the client does not indicate any symptoms associated with coronavirus-19. Ebola Screen: No symptoms or risks identified at this time. Initial Sepsis Screen: Does the patient meet any 2 criteria? No. Patient's initial sepsis screen is negative. Does the patient have a suspected source of infection? No. Patient's initial sepsis screen is negative. Risk Assessment: Do you want to hurt yourself or someone else? Patient reports no desire to harm self or others. Onset of symptoms was May 10, 2024. 10:42 Method Of Arrival: Ambulatory ko1 10:42 Acuity: BILLY 3 ko1 Triage Assessment: 10:47 General: Appears in no apparent distress. Behavior is calm, cooperative, appropriate ko1 for age. Pain: Denies pain. Neuro: Reports a syncopal episode. Historical: - Allergies: 10:47 NKDA; ko1 - Home Meds: 10:47 lisinopril 10 mg Oral tablet [Active]; lovastatin 40 mg Oral tablet [Active]; metformin ko1 500 mg Oral Tablet [Active]; Mounjaro 10 mg/0.5 mL subcutaneous Pen Injector every week [Active]; simvastatin 20 mg Oral tab 1 tab once daily [Active]; Xarelto 20 mg Oral tab [Active]; - PMHx: 10:47 Diabetes - NIDDM; High Cholesterol; PE; TIA; ko1 - Immunization history:: Adult Immunizations up to date. - Infectious Disease History:: Denies. - Social history:: Smoking status: Patient denies any tobacco usage or history of. - Family history:: not pertinent. Screenin:21 [facility] ED Fall Risk Assessment (Adult) History of falling in the last 3 months, kc6 including since admission No falls in past 3 months (0 pts) Confusion or Disorientation No (0 pts) Intoxicated or Sedated No (0 pts) Impaired Gait No (0 pts) Mobility Assist Device Used No (0 pt) Altered Elimination No (0 pt) Score/Fall Risk Level 0 - 2 = Low Risk. Abuse screen: Denies threats or abuse. Denies injuries from another. Nutritional screening: No deficits noted. Tuberculosis screening: No symptoms or risk factors identified. Assessment: 12:21 General: Appears in no apparent distress. comfortable, obese, well groomed, well kc6 developed, Behavior is calm, cooperative, appropriate for age. Pain: Denies pain. Neuro: Level of Consciousness is awake, alert, obeys commands, Oriented to person, place, time, situation, Appropriate for age Reports dizziness, a syncopal episode weakness. Cardiovascular: Rhythm is sinus rhythm. Respiratory: Airway is patent Trachea midline Respiratory effort is even, unlabored, Respiratory pattern is regular, symmetrical. GI: No signs and/or symptoms were reported involving the gastrointestinal system. : No signs and/or symptoms were reported regarding the genitourinary system. EENT: No signs and/or symptoms were reported regarding the EENT system. Derm: No signs and/or symptoms reported regarding the dermatologic system. Skin is intact, is healthy with good turgor, Skin is pink, warm \\T\\ dry. Musculoskeletal: No signs and/or symptoms reported regarding the musculoskeletal system. Circulation, motion, and sensation intact. Capillary refill < 3 seconds, Range of motion: intact in all extremities. 13:18 Reassessment: Patient appears in no apparent distress at this time. No changes from kc6 previously documented assessment. Patient and/or family updated on plan of care and expected duration. Pain level reassessed. Patient is alert, oriented x 3, equal unlabored respirations, skin warm/dry/pink. 14:10 Reassessment: Patient appears in no apparent distress at this time. No changes from kc6 previously documented assessment. Patient and/or family updated on plan of care and expected duration. Pain level reassessed. Patient is alert, oriented x 3, equal unlabored respirations, skin warm/dry/pink. 15:15 Reassessment: Patient appears in no apparent distress at this time. No changes from kc6 previously documented assessment. Patient and/or family updated on plan of care and expected duration. Pain level reassessed. Patient is alert, oriented x 3, equal unlabored respirations, skin warm/dry/pink. Vital Signs: 10:42 BP 184 / 79; Pulse 83; Resp 18; Temp 98; Pulse Ox 98% on R/A; ko1 12:22 BP 123 / 67; Pulse 84; Resp 19 S; Pulse Ox 96% on R/A; kc6 13:18 BP 121 / 74; Pulse 81; Resp 18 S; Pulse Ox 98% on R/A; kc6 15:16 BP 121 / 67; Pulse 80; Resp 17 S; Pulse Ox 100% on R/A; kc6 ED Course: 10:28 Patient arrived in ED. ra3 10:38 Edward Luong MD is Attending Physician. maxim 10:47 Triage completed. ko1 10:47 Arm band placed on right wrist. Patient placed in waiting room, on a stretcher, Patient ko1 notified of wait time. 11:00 CT Head Brain wo Cont In Process Unspecified. EDMS 11:09 XRAY Chest (1 view) In Process Unspecified. EDMS 12:10 Basic Metabolic Panel Sent. bc6 12:10 CBC with Diff Sent. bc6 12:10 LFT's Sent. bc6 12:10 Magnesium Sent. bc6 12:10 NT PRO-BNP Sent. bc6 12:10 PT-INR Sent. bc6 12:10 Troponin HS Sent. bc6 12:10 Initial lab(s) drawn, by ak, sent to lab. Inserted saline lock: 20 gauge in left [facility] antecubital area, using aseptic technique. Blood collected. 12:13 Luz Pruett, RN is Primary Nurse. kc6 12:20 Patient has correct armband on for positive identification. Bed in low position. Call [facility] light in reach. Side rails up X 1. Adult w/ patient. zig zag stitcher on. Pulse ox on. NIBP on. Door closed. Noise minimized. Pillow given. 15:15 No provider procedures requiring assistance completed. IV discontinued, intact, kc6 bleeding controlled, No redness/swelling at site. Pressure dressing applied. Administered Medications: 12:20 Drug: NS 0.9% IV 1000 ml IV at 1 bolus Per protocol; 1000 mL bolus Route: IV; Rate: 1 kc6 bolus; Site: left antecubital; 15:11 Follow up: Response: No adverse reaction; IV Status: Completed infusion; IV Intake: kc6 1000ml 15:13 Drug: Xarelto PO 20 mg PO once Route: PO; kc6 Medication: 15:16 VIS not applicable for this client. kc6 Intake: 15:11 IV: 1000ml; Total: 1000ml. kc6 Outcome: 14:45 Discharge ordered by MD. pan 15:15 Discharged to home ambulatory, with significant other, kc6 15:15 Condition: good 15:15 Discharge instructions given to patient, significant other, Instructed on discharge instructions, follow up and referral plans. Demonstrated understanding of instructions, follow-up care, 15:16 Patient left the ED. kc6 Signatures: Dispatcher [employer] Edward Mendez MD MD cha Campbell, Kaitlyn RN RN kc6 Rebecca Ramirez RN RN ko1 Teri Forte6 Lisa Dillard ra3
[2024-05-10] MEDS ORDERED: RIVAROXABAN 20 MG TABLET PO ONE (15:12)
[2024-05-10 19:33] VITALS: TEMP 98
[2024-05-10 19:40] VITALS: BP 121/67; O2SAT 100
--- NOTE | 2024-05-12 13:37 | EKG ---
Test Date: 2024-05-10 Test Time: 12:15:13 Edging Supervisor: ANI MEASUREMENT RESULTS: Intervals: Rate: 86 PA: 176 QRSD: 102 QT: 366 QTc: 437 [place]: P: 67 PA: 176 QRS: 85 T: 8 INTERPRETIVE STATEMENTS: Normal sinus rhythm Normal ECG Compared to ECG 03/12/2018 22:06:24 Myocardial infarct finding no longer present Electronically Signed On 05-12-24 13:32:18 CDT by Sarkis Maxwell
== END 2024-05-10 15:16 | disposition home or self-care (01) ==
LOC: ER 10:25
DX: E87.6 Hypokalemia (principal); R53.1 Weakness; Z79.01 Long term (current) use of anticoagulants
CPT/HCPCS: 36415; 70450; 71045; 80048; 80076; 81001; 83735; 83880; 84484; 85025; 85610; 93005; 96360; 96361; 99285; J7030